=== PATIENT | female | born 1950 | race Caucasian/White ===

== ENCOUNTER → 2021-01-24 | Outpatient (CLI) | payer MEDICARE, OTHER ==
--- NOTE | 2021-01-24 11:51 | Diagnostic Imaging Report ---
INDICATION: Fall. Arm pain. COMPARISON: None. FINDINGS: 3 views of the left elbow show no fractures, dislocations, or other acute bony abnormalities identified. Joint spaces are well maintained throughout. The soft tissues appear unremarkable. No radiopaque foreign bodies are identified. IMPRESSION: No acute fractures or dislocations of the left elbow. Dictated by: Dictated on workstation # [id number]
--- NOTE | 2021-01-24 11:52 | Diagnostic Imaging Report ---
INDICATION: Fall. Left arm pain. COMPARISON: None. FINDINGS: 3 views of the left shoulder were obtained. There is no fracture, dislocation, or other acute bony abnormality identified. The soft tissues appear unremarkable. No radiopaque foreign bodies identified. The visualized portions of the left lung are clear. IMPRESSION: No acute fractures or dislocations of the left shoulder. Dictated by: Dictated on workstation # [id number]
== END ==
LOC: RAD FS 11:17
PROVIDERS: ATTEND Nurse Practitioner
DX: M79.602 Pain in left arm (principal); W19.XXXA Unspecified fall, initial encounter
CPT/HCPCS: 73030; 73080